=== PATIENT | female | born 1975 | race Caucasian/White ===

== ENCOUNTER 2016-07-26 09:52 | Emergency (ER) | payer MEDICAID, OTHER ==
[~2016-07-26] VITALS: Ht 152.4 cm; Wt 60.9 kg
[~2016-07-26 09:52] MED LIST: HYDR-3533 PO; NAPR500 PO; PRED50 PO
[2016-07-26 09:59] VITALS: BP 144/97; PULSE 102; RESP 16; TEMP 98.2; O2SAT 100
[2016-07-26] MEDS ORDERED: diphenhydrAMINE HCL 50 MG/ML VIAL IM ONE (10:15)
[2016-07-26] MEDS ORDERED: METOCLOPRAMIDE HCL 10 MG/2 ML VIAL IM ONE (10:15)
[2016-07-26] MEDS ORDERED: IMIT50TA PO (10:15)
[2016-07-26] MEDS ORDERED: KETOROLAC TROMETHAMINE 60 MG/2 ML (IM) VIAL IM ONE (10:15)
--- NOTE | 2016-07-26 10:16 | PD ---
HPI Chief Complaint: Headache Time Seen by Provider: 10:07 Travel History International Travel<30 days: No Contact w/Intl Traveler<30days: No Traveled to known affect area: No History of Present Illness HPI 40-year-old female with history of migraine headache here with complaint of same. Patient states that for the last 3 days she has had a migraine headache that started with aura. She isn't trying wefe-out-rugqvyv medications without much improvement. This is typical of her chronic migraine headaches and is certainly not the worst headache of his life. No nocturnal symptoms, fevers or chills or neck stiffness. Patient does note chronic intermittent neck pain that has radicular symptoms down the arm. This is not new but certainly seems to be exacerbated over the course the last several days in association with her headache. She used to be on Topamax, for prophylaxis but is no longer. She does not have any abortive prescriptions at home. PFSH Past Medical History Hx Anticoagulant Therapy: No Cardiovascular Problems: Yes (HTN) Diabetes: No Diminished Hearing: No Respiratory: Yes (copd) ?: Not LMP: no menses Tubal Ligation: Yes Social History Alcohol Use: No Tobacco Use: Yes (/ ppd) Substance Use: No Allergies-Medications (Allergen,Severity, Reaction): Coded Allergies: Keflex (Verified Adverse Reaction, Severe, VOMITING, 07/26/16) Reported Meds & Prescriptions Reported Meds & Active Scripts Active Imitrex (Sumatriptan Succinate) 50 Mg Tab 50 Mg PO ONCE PRN If a satisfactory response has not been obtained at 2 hours, a second dose may be administered Review of Systems Except as stated in HPI: all other systems reviewed are Neg Physical Exam Narrative GENERAL: Well-appearing female in no acute distress SKIN: Focused skin assessment warm/dry. HEAD: Atraumatic. Normocephalic. EYES: Pupils equal and round. No scleral icterus. No injection or drainage. ENT: No nasal bleeding or discharge. Mucous membranes pink and moist. NECK: Supple without midline tenderness to palpation or nuchal rigidity CARDIOVASCULAR: Regular rate and rhythm. RESPIRATORY: No accessory muscle use. MUSCULOSKELETAL: Moves all extremities normally NEUROLOGICAL: Awake and alert. No obvious cranial nerve deficits. Motor grossly within normal limits. Normal speech. PSYCHIATRIC: Appropriate mood and affect; insight and judgment normal. Data Data Last Documented VS Vital Signs Date Time Temp Pulse Resp B/P Pulse Ox O2 Delivery O2 Flow Rate FiO2 07/26/16 10:14 Room Air 07/26/16 09:59 98.2 102 16 144/97 100 Orders Ketorolac Inj (Toradol Inj) (07/26/16 10:15) Diphenhydramine Inj (Benadryl Inj) (07/26/16 10:15) Metoclopramide Inj (Reglan Inj) (07/26/16 10:15) MDM Medical Decision Making Medical Screen Exam Complete: Yes Emergency Medical Condition: Yes Medical Record Reviewed: Yes Differential Diagnosis 40-year-old female with history of migraine headache here with complaint of headache and neck pain radiating down the arm. Differential includes migraine headache, tension headache, cluster headache.Patient has been afebrile, no neck stiffness or noctural headaches, is well-appearing, with a normal neurologic examination. This makes infection and subarachnoid hemorrhage very unlikely. There is not enough evidence to pursue these diagnoses. Narrative Course Patient given Benadryl, Reglan, Toradol with improvement of headache and discharged home. Discharged home with Imitrex for abortive therapy moving forward. Diagnosis Primary Impression: Migraine headache Qualified Code: G43.109 - Migraine with aura and without status migrainosus, not intractable Referrals: Primary Care Physician as needed Additional Instructions: Imitrex as needed for headache. Follow-up with primary care provider for refill of this if it does help her symptoms. Med/Other Pt SpecificInfo: Prescription(s) given Scripts Sumatriptan (Imitrex)50 Mg Tab50 Mg PO ONCE PRN (MIGRAINE HEADACHE) #10 TAB Ref 0 If a satisfactory response has not been obtained at 2 hours, a second dose may be administered Prov:Janny Brannon MD 07/26/16 Disposition: 01 DISCHARGE HOME Condition: Stable Janny Brannon MD Jul 26, 2016 10:16
== END 2016-07-26 10:49 | disposition home or self-care (01) ==
LOC: PHED 09:52
DX: G43.809 Other migraine, not intractable, without status migrainosus (principal); I10 Essential (primary) hypertension; J44.9 Chronic obstructive pulmonary disease, unspecified; F17.210 Nicotine dependence, cigarettes, uncomplicated
CPT/HCPCS: 96372; 99283; J1200; J1885; J2765

== ENCOUNTER 2016-10-23 17:42 | Emergency (ER) | payer MEDICAID ==
[~2016-10-23 17:42] MED LIST changes: -HYDR-3533 PO; +IMIT50TA PO; -NAPR500 PO; -PRED50 PO
[2016-10-23 17:49] VITALS: BP 125/85; PULSE 95; RESP 20; TEMP 98.2; O2SAT 99
[2016-10-23] MEDS ORDERED: ROBA750T PO (18:56)
--- NOTE | 2016-10-23 18:56 | PD ---
HPI Chief Complaint: Back/ Neck Pain or Injury Time Seen by Provider: 18:40 Travel History International Travel<30 days: No Contact w/Intl Traveler<30days: No Traveled to known affect area: No History of Present Illness HPI 41-year-old female presents to the emergency room for evaluation of low back pain for the past 2 days. Patient states she was working out and over did it 2 days ago after pushing 140 pounds on a leg press. Pain started that night and worsened the following morning. States she has not been able to stand up straight and has been walking around bent over. Pain is worsened with range of motion. She has taken #40 ibuprofen at home over the last 2 days which has just made her stomach hurt. She has a history of sciatica but states it is not exacerbated at this time. She denies loss of bowel or bladder control, lower extremity paresthesias, or saddle anesthesia. PFSH Past Medical History Hx Anticoagulant Therapy: No Bipolar Disorder: Yes Anxiety: Yes Depression: Yes Cardiovascular Problems: Yes (HTN) Diabetes: No Diminished Hearing: No Gout: Yes Respiratory: Yes (copd) Immunizations Current: Yes Tetanus Vaccination: < 5 Years Influenza Vaccination: No ?: Not LMP: ablation Tubal Ligation: Yes Past Surgical History Gynecologic Surgery: Yes (ablation) Social History Alcohol Use: No Tobacco Use: Yes (1/2 ppd) Substance Use: No Allergies-Medications (Allergen,Severity, Reaction): Coded Allergies: Keflex (Verified Adverse Reaction, Severe, VOMITING, 10/23/16) Reported Meds & Prescriptions Reported Meds & Active Scripts Active No Active Prescriptions or Reported Medications Review of Systems Except as stated in HPI: all other systems reviewed are Neg Physical Exam Narrative GENERAL: Well-nourished, well-developed female in no acute distress. Afebrile. Ambulatory. SKIN: Focused skin assessment warm/dry. No erythema or ecchymosis. HEAD: Normocephalic. EYES: No scleral icterus. No injection or drainage. NECK: Supple, trachea midline. No JVD or lymphadenopathy. CARDIOVASCULAR: Regular rate and rhythm without murmurs, gallops, or rubs. RESPIRATORY: Breath sounds equal bilaterally. No accessory muscle use. BACK: No CVA tenderness. No rash. No point tenderness on palpation of the spine. Tenderness to palpation of bilateral paraspinous musculature of the lumbar spine. 2+ patellar and Achilles reflexes are equal bilaterally. Strength 5/5 and equal in bilateral lower extremities. Data Data Last Documented VS Vital Signs Date Time Temp Pulse Resp B/P Pulse Ox O2 Delivery O2 Flow Rate FiO2 10/23/16 17:49 98.2 95 20 125/85 99 MDM Medical Decision Making Medical Screen Exam Complete: Yes Emergency Medical Condition: Yes Medical Record Reviewed: Yes Differential Diagnosis Muscle strain, fracture, contusion, sprain Narrative Course 41-year-old female presents to the emergency room for evaluation of low back pain after working out too hard 2 days ago. Patient was pushing 140 pounds on the leg press. She denies any other trauma or injury. No midline tenderness. No focal neurological deficits. She is ambulatory. Strength and reflexes are equal and intact bilaterally. No indication for imaging at this time. This is muscle strain. Patient was discharged with short course of Robaxin and told to follow up with a primary care physician or return for worsening symptoms. She understands and agrees to plan. Diagnosis Primary Impression: Low back strain Qualified Code: S39.012A - Low back strain, initial encounter Referrals: Primary Care Physician Patient Instructions: General Instructions, Low Back Strain (ED) Additional Instructions: Rest and drink plenty of fluids. Take Robaxin as directed, as needed for pain. Take ibuprofen with food as directed, as needed for pain. Do not take more than directed. Apply ice to the affected area for 20 minutes at a time, as needed for pain and swelling. Follow-up with a primary care physician. Return to the emergency room for worsening symptoms. Med/Other Pt SpecificInfo: Prescription(s) given Scripts No Active Prescriptions or Reported Meds Disposition: 01 DISCHARGE HOME Condition: Stable Lilly Babb Oct 23, 2016 18:56
== END 2016-10-23 19:09 | disposition home or self-care (01) ==
LOC: PHED 17:42 → PHEFT 19:09
DX: S39.012A Strain of muscle, fascia and tendon of lower back, initial encounter (principal); X50.0XXA Overexertion from strenuous movement or load, initial encounter; I10 Essential (primary) hypertension; J44.9 Chronic obstructive pulmonary disease, unspecified
CPT/HCPCS: 99283

== ENCOUNTER 2016-12-25 07:38 | Emergency (ER) | payer MEDICAID ==
[~2016-12-25] VITALS: Ht 154.9 cm; Wt 59.0 kg
[~2016-12-25 07:38] MED LIST changes: -IMIT50TA PO; +ROBA750T PO
[2016-12-25 07:49] VITALS: BP 149/83; PULSE 115; RESP 16; TEMP 98.7; O2SAT 99
[2016-12-25] MEDS ORDERED: AMOX875T PO (08:14)
--- NOTE | 2016-12-25 08:14 | PD ---
HPI . Nasal congestion and sore throat Chief Complaint: Cold / Flu Symptoms Time Seen by Provider: 08:09 Travel History International Travel<30 days: No Contact w/Intl Traveler<30days: No Traveled to known affect area: No History of Present Illness HPI This patient presents along with her 2 sons who are ill with the same thing with the chief complaint of nasal congestion and sore throat. Onset has been 2 weeks. She states that she has been taking vyow-mmk-krngexy allergy medication with no relief. She has not been running a fever. Symptoms are mild. PFSH Past Medical History Hx Anticoagulant Therapy: No Asthma: Yes Bipolar Disorder: Yes Anxiety: Yes Depression: Yes Cardiovascular Problems: Yes (HTN) Diabetes: No Diminished Hearing: No Gout: Yes Respiratory: Yes (copd) Immunizations Current: Yes Influenza Vaccination: No ?: Not LMP: ABLATION Tubal Ligation: Yes Past Surgical History Gynecologic Surgery: Yes (ablation) Social History Alcohol Use: No Tobacco Use: Yes (1/2 ppd) Substance Use: No Allergies-Medications (Allergen,Severity, Reaction): Coded Allergies: cephalexin (Unverified Adverse Reaction, Severe, VOMITING, 12/25/16) Reported Meds & Prescriptions Reported Meds & Active Scripts Active No Active Prescriptions or Reported Medications Review of Systems Except as stated in HPI: all other systems reviewed are Neg General / Constitutional: No: Fever, Chills HENT: Positive: Sore Throat, Congestion Physical Exam Narrative GENERAL: Awake and alert and in no acute distress. SKIN: Warm and dry. HEAD: Atraumatic. Normocephalic. EYES: Pupils equal and round. No conjunctival injection or drainage. ENT: Erythema of the oropharynx. No tonsillar enlargement or exudate. No edema of the soft palate. Uvula midline. NECK: Trachea midline. No cervical lymphadenopathy. CARDIOVASCULAR: Regular rate and rhythm. RESPIRATORY: No accessory muscle use. Lungs are clear with full air movement throughout. MUSCULOSKELETAL: No obvious deformities. No edema. NEUROLOGICAL: Awake and alert. No obvious cranial nerve deficits. Motor grossly within normal limits. Normal speech. PSYCHIATRIC: Appropriate mood and affect; insight and judgment normal. Data Data Last Documented VS Vital Signs Date Time Temp Pulse Resp B/P (MAP) Pulse Ox O2 Delivery O2 Flow Rate FiO2 12/25/16 07:49 98.7 115 16 149/83 (105) 99 Room Air MDM Medical Decision Making Medical Screen Exam Complete: Yes Emergency Medical Condition: Yes Differential Diagnosis Differential diagnosis includes but is not limited to influenza, upper respiratory infection, bronchitis, pneumonia Narrative Course This patient presents with congestion and sore throat. Her son has signs and symptoms typical of strep throat. Therefore, she will be treated with amoxicillin. Diagnosis Primary Impression: Upper respiratory infection Qualified Codes: J06.9 - Acute upper respiratory infection, unspecified; B97.89 - Other viral agents as the cause of diseases classified elsewhere Patient Instructions: General Instructions, Upper Respiratory Infection (DC) Additional Instructions: I recommend the use of a Neti Pot. You may use a nasal spray such as Afrin for up to 3 days as needed for nasal congestion. You may take an qjxc-suy-gmpaowa antihistamine such as Zyrtec, Asha or Claritin as needed for runny secretions. You may take pseudoephedrine as needed for congestion. You will need to sign for this at the pharmacy. You may take plain Mucinex, 1200 mg twice a day as needed for thick secretions. You may take a cough syrup such as Delsym as needed for cough. Motrin as needed for fever and body aches. Throat lozenges/sprays as needed for sore throat. Warm salt water gargles for sore throat. Hot tea with lemon and honey also helps soothe a sore throat. Med/Other Pt SpecificInfo: Prescription(s) given Scripts Amoxicillin (Amoxicillin) 875 Mg Tab 875 MG PO BID for Infection, #14 TAB 0 Refills Prov: Rama Nagel MD 12/25/16 Disposition: 01 DISCHARGE HOME Condition: Stable Rama Nagel MD Dec 25, 2016 08:14
== END 2016-12-25 08:24 | disposition home or self-care (01) ==
LOC: PHED 07:38
DX: J06.9 Acute upper respiratory infection, unspecified (principal); B97.89 Other viral agents as the cause of diseases classified elsewhere; I10 Essential (primary) hypertension; J44.9 Chronic obstructive pulmonary disease, unspecified; M10.9 Gout, unspecified; F17.210 Nicotine dependence, cigarettes, uncomplicated
CPT/HCPCS: 99283

== ENCOUNTER 2017-02-26 10:24 | Emergency (ER) | payer MEDICAID ==
[~2017-02-26] VITALS: Ht 152.4 cm; Wt 61.0 kg
[~2017-02-26 10:24] MED LIST changes: +AMOX875T PO; -ROBA750T PO
[2017-02-26 10:34] VITALS: BP 171/99; PULSE 119; RESP 16; TEMP 98.3; O2SAT 99
[2017-02-26] MEDS ORDERED: ORPHENADRINE INJ 60 MG/2 ML AMP IM ONE (11:15)
[2017-02-26] MEDS ORDERED: KETOROLAC TROMETHAMINE 60 MG/2 ML (IM) VIAL IM ONE (11:15)
[2017-02-26 11:27] VITALS: PULSE 98; RESP 18; O2SAT 98
[2017-02-26] MEDS ORDERED: NAPR500T2 PO (11:36)
[2017-02-26] MEDS ORDERED: CYCL5TAB PO (11:36)
--- NOTE | 2017-02-26 11:36 | PD ---
HPI . Lower back pain Chief Complaint: Musculoskeletal Complaint Time Seen by Provider: 10:59 Travel History International Travel<30 days: No Contact w/Intl Traveler<30days: No Traveled to known affect area: No History of Present Illness HPI 41-year-old female presents emergency department for evaluation of lower back pain that radiates down her left leg. Patient denies any injuries, falls or traumas to the area. 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 Patient has a history of sciatica and reports that this is how her sciatica presents. She typically goes to the chiropractor and takes muscle relaxers. She reports that she is out of her muscle relaxers currently. She denies any incontinence of urine or stool. Patient denies any IV drug use. Patient has any fevers, chills, malaise, shortness breath, chest pain. PFSH Past Medical History Hx Anticoagulant Therapy: No Asthma: Yes Bipolar Disorder: Yes Anxiety: Yes Depression: Yes Cardiovascular Problems: Yes (HTN) Diabetes: No Diminished Hearing: No Gout: Yes Respiratory: Yes (copd) Immunizations Current: Yes ?: Not LMP: ABLATION/7 YRS Tubal Ligation: Yes Past Surgical History Gynecologic Surgery: Yes (ablation) Social History Alcohol Use: No Tobacco Use: Yes (1/2 ppd) Substance Use: No Allergies-Medications (Allergen,Severity, Reaction): Coded Allergies: cephalexin (Unverified Adverse Reaction, Severe, VOMITING, 02/26/17) Reported Meds & Prescriptions Reported Meds & Active Scripts Active Review of Systems Except as stated in HPI: all other systems reviewed are Neg Physical Exam Narrative GENERAL: Well-nourished, well-developed 41-year-old female patient in no acute distress. Nontoxic appearing. SKIN: Focused skin assessment warm/dry. HEAD: Normocephalic. Atraumatic. EYES: No scleral icterus. No injection or drainage. NECK: Supple, trachea midline. No JVD or lymphadenopathy. CARDIOVASCULAR: Regular rate and rhythm without murmurs, gallops, or rubs. RESPIRATORY: Breath sounds equal bilaterally. No accessory muscle use. GASTROINTESTINAL: Abdomen soft, non-tender, nondistended. MUSCULOSKELETAL: Full range of motion to all extremities. No obvious deformities, cyanosis, or edema. BACK: Left lumbar sacral tenderness to palpation, right lumbar sacral tenderness to palpation. No midline tenderness, no obvious deformity, ecchymosis, erythema or cyanosis. No CVA tenderness. Data Data Last Documented VS Vital Signs Date Time Temp Pulse Resp B/P (MAP) Pulse Ox O2 Delivery O2 Flow Rate FiO2 02/26/17 11:27 98 18 98 Room Air 02/26/17 10:34 98.3 171/99 (123) Orders Orders Ketorolac Inj (Toradol Inj) (02/26/17 11:15) Orphenadrine Inj (Norflex Inj) (02/26/17 11:15) MDM Medical Decision Making Medical Screen Exam Complete: Yes Emergency Medical Condition: Yes Differential Diagnosis Differential diagnoses include but not limited to muscular strain, muscular sprain, sciatica exacerbation Narrative Course 41-year-old female present to emergency department for evaluation of chronic back pain exacerbation. Exacerbation occurred after she tried to lift her 40 pound grandson. She reports that she does have a history of sciatica and this is how her sciatica presents. She typically goes to the chiropractor and takes muscle relaxers to treat it. She is currently out of her muscle relaxers. Patient denies any incontinence of urine or stool, patient denies any fevers or chills, patient denies any IV drug use. Due to the mechanism of injury, clinical presentation and physical exam and low risk factors my suspicion for cauda equina syndrome is very low. There is no signs of trauma, ecchymosis, erythema or cyanosis to her lower back or lower extremities. Patient will be given IM injection of Toradol and Norflex and discharged home with prescription for Flexeril and naproxen and instructions to follow up with her primary care. Patient is happy with this plan of care and thankful for care. Diagnosis Primary Impression: Sciatica Qualified Codes: M54.31 - Sciatica, right side; M54.32 - Sciatica, left side Referrals: Primary Care Physician Patient Instructions: General Instructions, Sciatica (ED) Additional Instructions: Please return to emergency department if your symptoms return or worsen. Follow up with your primary care provider. Take medications as prescribed. Med/Other Pt SpecificInfo: Prescription(s) given Scripts Naproxen (Naproxen) 500 Mg Tab 500 MG PO BID for 5 Days, #10 TAB 0 Refills Prov: Lorraine Robles 02/26/17 Cyclobenzaprine (Flexeril) 5 Mg Tab 5 MG PO TID for Muscle Spasm for 5 Days, #90 TAB 0 Refills Prov: Lorraine Robles 02/26/17 Disposition: 01 DISCHARGE HOME Condition: Stable Lorraine Robles Feb 26, 2017 11:36
== END 2017-02-26 11:43 | disposition home or self-care (01) ==
LOC: PHED 10:24 → PHEFT 11:43
DX: M54.41 Lumbago with sciatica, right side (principal); M54.42 Lumbago with sciatica, left side; F17.200 Nicotine dependence, unspecified, uncomplicated
CPT/HCPCS: 96372; 99284; J1885; J2360